=== PATIENT | female | born 1960 | race Caucasian/White ===

== ENCOUNTER 2017-10-01 21:26 | Emergency (ER) | payer MEDICARE, OTHER ==
[~2017-10-01] VITALS: Ht 172.7 cm; Wt 79.8 kg
[~2017-10-01 21:26] MED LIST: CALCA400CH PO; CALCA500CH PO; CITA20 PO; ERGO50000 PO; GABA300 PO; LISI20 PO; MAGCHL64ER PO; Mobic15 MG PO; Percocet 5-3251 EACH PO; TRAZ100 PO; VENL25 PO; VITAMIN B122500 MC1 PO
[2017-10-01] MEDS ORDERED: CEPH500 PO (23:39)
== END 2017-10-01 23:58 | disposition home or self-care (01) ==
LOC: ER 21:26
DX: L03.032 Cellulitis of left toe (principal); Z79.899 Other long term (current) drug therapy; F32.9 Major depressive disorder, single episode, unspecified; F17.200 Nicotine dependence, unspecified, uncomplicated
CPT/HCPCS: 99283

== ENCOUNTER → 2019-06-22 | Outpatient (CLI) | payer MEDICARE ==
[~2019-06-22] MED LIST changes: +CEPH500 PO
== END ==
LOC: LAB SHORT 19:33 → LAB 19:33
DX: N39.0 Urinary tract infection, site not specified (principal)
CPT/HCPCS: 87077; 87086; 87186

== ENCOUNTER 2019-10-21 10:12 | Emergency (ER) | payer MEDICARE ==
[~2019-10-21] VITALS: Ht 172.7 cm; Wt 74.8 kg
[2019-10-21] MEDS ORDERED: FAMO20 PO (10:46)
[2019-10-21] MEDS ORDERED: DEXA4 PO (10:46)
[2019-10-21] MEDS ORDERED: LEVE500 PO (10:46)
== END 2019-10-21 12:00 | disposition home or self-care (01) ==
LOC: ER 10:12
DX: H53.9 Unspecified visual disturbance (principal); I10 Essential (primary) hypertension; F32.9 Major depressive disorder, single episode, unspecified; G62.9 Polyneuropathy, unspecified; F17.210 Nicotine dependence, cigarettes, uncomplicated; Z79.899 Other long term (current) drug therapy; Z98.890 Other specified postprocedural states
CPT/HCPCS: 70450; 99284-25

== ENCOUNTER 2019-12-04 14:06 | Emergency (ER) | payer MEDICARE, OTHER ==
[~2019-12-04] VITALS: Ht 172.7 cm; Wt 79.4 kg
[~2019-12-04 14:06] MED LIST changes: +B-121000 MC3 PO; +DEXA4 PO; +FAMO20 PO; +LEVE500 PO; +VENL150ER PO; -VENL25 PO; -VITAMIN B122500 MC1 PO
[2019-12-04 14:32] LABS: Source, Urine Voided
[2019-12-04 14:35] LABS: Bilirubin, Urine Neg (Neg); Blood, Urine Neg (Neg); Glucose Qualitative, Urine Neg (Neg); Ketones, Urine Neg (Neg); Leukocyte Esterase, Urine Neg (Neg); Nitrite, Urine Neg (Neg); Protein, Urine Neg (Neg); Urobilinogen, Urine NORM (Normal)
[2019-12-04 14:48] LABS: Appearance, Urine Clear (Clear); Color, Urine Yellow (P-Yellow)
[2019-12-04 15:02] LABS: BASOPHILS ABSOLUTE AUTO 0.03 K/mm3 (0.00-0.23); BASOPHILS PERCENT AUTO 0 % (0-2); EOSINOPHILS ABSOLUTE AUTO 0.07 K/mm3 (0.00-0.68); EOSINOPHILS PERCENT AUTO 1 % (0-6); Hematocrit 38.7 % (33.0-51.0); Hemoglobin 12.8 g/dL (11.5-16.0); IMMATURE GRAN ABSOLUTE AUTO 0.25 K/mm3 (0.00-0.10); IMMATURE GRAN PERCENT AUTO 3 % (0-1); LYMPHOCYTES ABSOLUTE AUTO 1.92 K/mm3 (0.84-5.20); LYMPHOCYTES PERCENT AUTO 23 % (21-46); MONOCYTES ABSOLUTE AUTO 0.63 K/mm3 (0.16-1.47); MONOCYTES PERCENT AUTO 7 % (4-13); Mean Corpuscular HGB Conc 33.1 g/dL (31.5-36.5); Mean Corpuscular Volume 91 fL (80-100); Mean Platelet Volume 8.2 fL (9.1-12.4); NEUTROPHILS ABSOLUTE AUTO 5.56 K/mm3 (1.96-9.15); NEUTROPHILS PERCENT AUTO 66 % (41-73); Platelet Count 283 K/mm3 (150-400); RDW Coefficient Variation 15.4 % (11.7-14.2); RDW Standard Deviation 50.7 fL (35.1-46.3); Red Blood Cell Count 4.27 M/mm3 (3.80-5.20); White Blood Cell Count 8.46 K/mm3 (4.00-11.30)
[2019-12-04] MEDS ORDERED: XANAX0.25 MG PO (15:12)
[2019-12-04] MEDS ORDERED: PRINIVIL10 MG PO (15:12)
[2019-12-04] MEDS ORDERED: NEURONTIN600 MG PO (15:13)
[2019-12-04] MEDS ORDERED: ZOLP10 PO (15:14)
[2019-12-04] MEDS ORDERED: MOBIC15 MG PO (15:15)
[2019-12-04] MEDS ORDERED: DOCU100 PO (15:16)
[2019-12-04 15:26] LABS: Alanine Aminotransfer (ALT/SGP 32 U/L (12-78); Albumin, Blood 3.3 g/dL (3.4-5.0); Albumin/Globulin Ratio 1.1 (0.8-1.8); Alk Phos 61 U/L (50-136); Anion Gap 7 mmol/L (6-16); Aspartate Aminotrans (AST/SGOT 22 U/L (12-37); Bilirubin, Total 0.5 mg/dL (0.1-1.0); Blood Urea Nitrogen 24 mg/dL (8-24); Bun/Creatinine Ratio 41.4 (12.0-20.0); CO2, Blood 27 mmol/L (21-32); Calcium, Blood 8.5 mg/dL (8.5-10.1); Chloride, Blood 104 mmol/L (98-108); Creatinine, Blood 0.58 mg/dL (0.40-1.00); Globulin, Blood 3.1 g/dL (2.2-4.0); Glomerular Filtration Rate >60 (60-); Glucose, Blood 83 mg/dL (70-99); Potassium, Blood 4.1 mmol/L (3.5-5.5); Sodium, Blood 138 mmol/L (136-145); Total Protein, Blood 6.4 g/dL (6.4-8.2)
== END 2019-12-04 18:38 | disposition home or self-care (01) ==
LOC: ER 14:06
PROVIDERS: Emergency Medicine
DX: R42 Dizziness and giddiness (principal); F32.9 Major depressive disorder, single episode, unspecified; I10 Essential (primary) hypertension; G62.9 Polyneuropathy, unspecified; F17.210 Nicotine dependence, cigarettes, uncomplicated; Z79.899 Other long term (current) drug therapy
CPT/HCPCS: 36415; 80053; 81003; 85025; 93005; 93010; 96360; 96361; 99284-25; J7030

== ENCOUNTER 2020-04-19 15:40 | Observation (INO) | payer MEDICARE, OTHER ==
[~2020-04-19] VITALS: Ht 172.7 cm; Wt 76.2 kg
[~2020-04-19 15:40] MED LIST changes: -DEXA4 PO; +DOCU100 PO; -LEVE500 PO; -VENL150ER PO; +XANAX0.25 MG PO
[2020-04-19 16:47] LABS: BASOPHILS ABSOLUTE AUTO 0.01 K/mm3 (0.00-0.23); BASOPHILS PERCENT AUTO 0 % (0-2); EOSINOPHILS ABSOLUTE AUTO 0.01 K/mm3 (0.00-0.68); EOSINOPHILS PERCENT AUTO 0 % (0-6); Hematocrit 33.1 % (33.0-51.0); Hemoglobin 10.8 g/dL (11.5-16.0); IMMATURE GRAN ABSOLUTE AUTO 0.06 K/mm3 (0.00-0.10); IMMATURE GRAN PERCENT AUTO 1 % (0-1); LYMPHOCYTES ABSOLUTE AUTO 1.32 K/mm3 (0.84-5.20); LYMPHOCYTES PERCENT AUTO 18 % (21-46); MONOCYTES ABSOLUTE AUTO 0.61 K/mm3 (0.16-1.47); MONOCYTES PERCENT AUTO 9 % (4-13); Mean Corpuscular HGB 30.2 pg (26.0-34.0); Mean Corpuscular HGB Conc 32.6 g/dL (31.5-36.5); Mean Corpuscular Volume 93 fL (80-100); Mean Platelet Volume 8.7 fL (9.1-12.4); NEUTROPHILS ABSOLUTE AUTO 5.16 K/mm3 (1.96-9.15); NEUTROPHILS PERCENT AUTO 72 % (41-73); Platelet Count 285 K/mm3 (150-400); RDW Coefficient Variation 13.2 % (11.7-14.2); RDW Standard Deviation 44.7 fL (35.1-46.3); Red Blood Cell Count 3.58 M/mm3 (3.80-5.20); White Blood Cell Count 7.17 K/mm3 (4.00-11.30)
[2020-04-19 16:56] LABS: Alanine Aminotransfer (ALT/SGP 44 U/L (12-78); Alk Phos 128 U/L (50-136); Anion Gap 8 mmol/L (6-16); Aspartate Aminotrans (AST/SGOT 34 U/L (12-37); Bilirubin, Total 0.4 mg/dL (0.1-1.0); Blood Urea Nitrogen 33 mg/dL (8-24); Bun/Creatinine Ratio 43.3 (12.0-20.0); CO2, Blood 27 mmol/L (21-32); Chloride, Blood 111 mmol/L (98-108); Creatinine, Blood 0.76 mg/dL (0.40-1.00); Globulin, Blood 3.1 g/dL (2.2-4.0); Glomerular Filtration Rate >60 (60-); Glucose, Blood 109 mg/dL (70-99); Potassium, Blood 2.5 mmol/L (3.5-5.5); Sodium, Blood 146 mmol/L (136-145); Total Protein, Blood 6.1 g/dL (6.4-8.2)
[2020-04-19 17:24] LABS: Source, Urine Catheter
[2020-04-19 17:35] LABS: Blood, Urine 1+ (Neg); Glucose Qualitative, Urine Neg (Neg); Ketones, Urine 2+ (Neg); Leukocyte Esterase, Urine 1+ (Neg); Nitrite, Urine Neg (Neg); Protein, Urine 2+ (Neg); Specific Gravity, Urine 1.025 (1.003-1.022); Urobilinogen, Urine 1+ (Normal)
[2020-04-19] MEDS ORDERED: OXYC5 PO (17:38)
[2020-04-19] MEDS ORDERED: PRINIVIL10 MG PO (17:38)
[2020-04-19] MEDS ORDERED: NEURONTIN600 MG PO (17:38)
[2020-04-19] MEDS ORDERED: DEXA4 PO (17:39)
[2020-04-19] MEDS ORDERED: LEVE500 PO (17:39)
[2020-04-19] MEDS ORDERED: MOBIC15 MG PO (17:40)
[2020-04-19] MEDS ORDERED: Ativan1 MG PO (17:40)
[2020-04-19 17:41] LABS: Appearance, Urine Hazy (Clear); Bilirubin, Urine 1+ (Neg); Color, Urine Yellow (P-Yellow)
[2020-04-19] MEDS ORDERED: VENL150ER PO (17:41)
[2020-04-19] MEDS ORDERED: SULFAMETHOXAZO1 EAC1 PO (17:42)
[2020-04-19 17:43] LABS: Bacteria Rare /hpf; Hyaline Casts 0-2 /lpf (0-2); Mucus Heavy (0-Heavy); Red Blood Cells, Urine Not Seen /hpf (0-2); Squamous Epithelial Cells Many /hpf (Few)
[2020-04-19] MEDS ORDERED: ZOLP10 PO (18:46)
--- NOTE | 2020-04-20 04:25 | NUR ---
SHIFT SUMMARY PT NEW ED ADMIT THIS EVENING. PT HAS BASELINE CONFUSION PER MD NOTE BUT IT IS UNCLEAR HOW CLOSE TO BASELINE PT'S MENTATION IS AT THIS TIME. PT REMAINS CONFUSED. HOWEVER MORE CLEAR MINDED THAN WHEN FIRST ADMITTED THIS EVENING. PT A/O X 2-3. PT DID REPORT PAIN IN BLE'S. BILATERAL FEET A BLUE HUE. WOUNDS SCATTERED THROUGHOUT, MORE SEVERE ON LEGS THAN ANYWHERE ELSE ON PT'S BODY. PT STATED IT WAS FROM GARDENING AT HOME AND BELIEVES THAT SHE HAS ALSO BEEN FALLING AT HOME BUT WAS NOT ENTIRELY SURE. PICTURES TAKEN AND PLACED IN CHART. PT ALSO GIVEN TYLENOL WITH GOOD EFFECT. 40 MEQS IV POTASSIUM GIVEN THIS EVENING AFTER ADMISSION. IN ADDITION PT RECIEVED 20 MEQS IV AND 40 MEQS PO IN ED. SEIZURE PADS PLACED PER ORDERS. VITAL SIGNS STABLE. WILL CONTINUE TO MONITOR AND REPORT TO DAY RN.
[2020-04-20 05:07] LABS: BASOPHILS PERCENT AUTO 0 % (0-2); EOSINOPHILS PERCENT AUTO 0 % (0-6); Hematocrit 31.5 % (33.0-51.0); Hemoglobin 10.3 g/dL (11.5-16.0); IMMATURE GRAN ABSOLUTE AUTO 0.08 K/mm3 (0.00-0.10); IMMATURE GRAN PERCENT AUTO 1 % (0-1); LYMPHOCYTES ABSOLUTE AUTO 0.57 K/mm3 (0.84-5.20); LYMPHOCYTES PERCENT AUTO 9 % (21-46); MONOCYTES ABSOLUTE AUTO 0.19 K/mm3 (0.16-1.47); MONOCYTES PERCENT AUTO 3 % (4-13); Mean Corpuscular HGB 30.1 pg (26.0-34.0); Mean Corpuscular HGB Conc 32.7 g/dL (31.5-36.5); Mean Corpuscular Volume 92 fL (80-100); NEUTROPHILS ABSOLUTE AUTO 5.34 K/mm3 (1.96-9.15); NEUTROPHILS PERCENT AUTO 86 % (41-73); Platelet Count 271 K/mm3 (150-400); RDW Coefficient Variation 13.2 % (11.7-14.2); RDW Standard Deviation 44.4 fL (35.1-46.3); Red Blood Cell Count 3.42 M/mm3 (3.80-5.20); White Blood Cell Count 6.18 K/mm3 (4.00-11.30)
[2020-04-20 05:42] LABS: Anion Gap 5 mmol/L (6-16); Blood Urea Nitrogen 30 mg/dL (8-24); Bun/Creatinine Ratio 52.8 (12.0-20.0); CO2, Blood 27 mmol/L (21-32); Calcium, Blood 8.4 mg/dL (8.5-10.1); Chloride, Blood 112 mmol/L (98-108); Creatinine, Blood 0.57 mg/dL (0.40-1.00); Glomerular Filtration Rate >60 (60-); Glucose, Blood 216 mg/dL (70-99); Potassium, Blood 4.2 mmol/L (3.5-5.5); Sodium, Blood 144 mmol/L (136-145)
--- NOTE | 2020-04-20 13:56 | NUR ---
SHE HAS HAD A BUSY DAY SO FAR. HER MRI WAS COMPLETED ON THE 2ND ATTEMPT. SHE C/O TOO MUCH BACK PAIN THE FIRST TIME. SHE HAD NOT MENTIONED ANY BACK PAIN TO ME PRIOR TO THE TEST. ONE DOSE OF IV FENTANYL WAS EFFECTIVE LATER. SHE ALSO RECEIVED A PO ATIVAN THIS AM WHILE SHE WAS TEARFUL. SHE IS STRESSED ABOUT HER HEALTH AND ABOUT HER PERSONAL LIFE. SS REFERRAL WAS MADE LAST NIGHT AND APS CALLED TODAY. SHE MAY WANT TO GO TO A WOMEN[facility]S DETENTION WHEN SHE LEAVES HERE. HER DAUGHTER FERNANDO CALLED AND SPOKE WITH HER ON THE PHONE THIS AM. TINY SPOTS OF BLOODY DRAINAGE DOT THE BED FROM HER MULTIPLE VARIABLE LEG WOUNDS. SHE IS CONFUSED BUT KNOWS IT. IT DISTRESSES HER THAT IT IS SO HARD FOR HER TO THINK.
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
--- NOTE | 2020-04-21 04:24 | NUR ---
SHIFT SUMMARY PT IS A 59 Y/O FEMALE, ADMITTED FOR ACUTE METABOLIC ENCEPHALOPATHY. SHE IS A&O X SELF, SOMETIMES KNOWS SHE IS IN THE HOSPITAL, BUT DOES NOT KNOW THE TOWN OR DATE. PT IS AWARE OF HER CURRENT MENTAL LIMITATIONS, AND DOES GET FRUSTRATED WITH HERSELF AT TIMES. NO COMPLAINTS OF ACUTE PAIN, NAUSEA OR SOB. VITAL SIGNS STABLE. NO ACUTE CHANGES IN PT CONDITION NOTED. WILL CONTINUE TO MONITOR AND TREAT PER EMAR UNTIL HAND OFF TO DAY SHIFT RN.
[2020-04-21 05:08] LABS: BASOPHILS ABSOLUTE AUTO 0.01 K/mm3 (0.00-0.23); BASOPHILS PERCENT AUTO 0 % (0-2); EOSINOPHILS PERCENT AUTO 0 % (0-6); Hematocrit 35.3 % (33.0-51.0); Hemoglobin 11.5 g/dL (11.5-16.0); IMMATURE GRAN ABSOLUTE AUTO 0.18 K/mm3 (0.00-0.10); IMMATURE GRAN PERCENT AUTO 2 % (0-1); LYMPHOCYTES ABSOLUTE AUTO 0.72 K/mm3 (0.84-5.20); LYMPHOCYTES PERCENT AUTO 8 % (21-46); MONOCYTES ABSOLUTE AUTO 0.49 K/mm3 (0.16-1.47); MONOCYTES PERCENT AUTO 5 % (4-13); Mean Corpuscular HGB 29.5 pg (26.0-34.0); Mean Corpuscular HGB Conc 32.6 g/dL (31.5-36.5); Mean Corpuscular Volume 91 fL (80-100); Mean Platelet Volume 9.1 fL (9.1-12.4); NEUTROPHILS ABSOLUTE AUTO 7.78 K/mm3 (1.96-9.15); NEUTROPHILS PERCENT AUTO 85 % (41-73); Platelet Count 321 K/mm3 (150-400); RDW Coefficient Variation 12.8 % (11.7-14.2); RDW Standard Deviation 41.9 fL (35.1-46.3); White Blood Cell Count 9.18 K/mm3 (4.00-11.30)
[2020-04-21 05:37] LABS: Alanine Aminotransfer (ALT/SGP 35 U/L (12-78); Albumin, Blood 2.7 g/dL (3.4-5.0); Albumin/Globulin Ratio 0.9 (0.8-1.8); Alk Phos 123 U/L (50-136); Anion Gap 6 mmol/L (6-16); Aspartate Aminotrans (AST/SGOT 12 U/L (12-37); Bilirubin, Total 0.2 mg/dL (0.1-1.0); Blood Urea Nitrogen 18 mg/dL (8-24); CO2, Blood 27 mmol/L (21-32); Chloride, Blood 106 mmol/L (98-108); Creatinine, Blood 0.62 mg/dL (0.40-1.00); Globulin, Blood 3.1 g/dL (2.2-4.0); Glomerular Filtration Rate >60 (60-); Glucose, Blood 165 mg/dL (70-99); Potassium, Blood 3.7 mmol/L (3.5-5.5); Sodium, Blood 139 mmol/L (136-145); Total Protein, Blood 5.8 g/dL (6.4-8.2)
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
--- NOTE | 2020-04-21 17:45 | NUR ---
SHIFT SUMMARY PATIENTS DAUGHTERS INVOLVED IN CARE TODAY WITH PALLIATIVE CARE. PER MICHELLE PALLIATIVE CARE, HER GLEOBLASTOMA MAY BE BACK. PATIENT MADE COMFORT CARE AND TO DISCHARGE WITH HOSPICE WHEN SAFE ARANGEMENTS ARE MADE. SHE HAS BEEN VERY ANXIOUS AND TEARFUL TODAY. ATIVAN GIVEN X1 WHICH HELPED SIGNIFICANTLY.
--- NOTE | 2020-04-22 06:41 | NUR ---
SHIFT SUMMARY PT IS A 59 Y/O FEMALE, ADMITTED FOR TOXIC METABOLIC ENCEPHALOPATHY, CURRENTLY ON COMFORT CARE. PT IS A&O X 1-2, A 1PA TO THE BATHROOM. NO COMPLAINTS OF PAIN, NAUSEA OR SOB. PT SLEPT WELL THROUGH THE NIGHT. NO ACUTE CHANGES IN PT CONDITION NOTED. WILL CONTINUE TO MONITOR AND TREAT PER EMAR UNTIL HAND OFF TO DAY SHIFT RN.
--- NOTE | 2020-04-22 10:45 | NUR ---
Rosalba is currently on comfort care. Chart reviewed. She is currently sleeping and there is no family in the room at this time. Will allow her to rest and attempt to visit when she is awake.
--- NOTE | 2020-04-22 17:48 | NUR ---
PT STARTED SHIFT WITH EXTREME ANXIETY VERY TEARFUL AND WAS CRYING STATING SHE JUST WANTED TO LEAVE. TREATED FOR ANXIETY PER EMAR. THIS SEEMED TO HELP, BUT SHE STILL WAS TEARFUL TREATED AGAIN FOR ANXIETY PER EMAR AND THIS SEEMED TO BE EFFECTIVE. THIS DATA SECURITY ADMINISTRATOR VERBALLY SPOKE WITH PT TRYING TO CALM HER, BUT SHE JUST SEEMS TO GET WORKED UP.PT SET BED ALARM OFF AND AID WAS TRYING TO HELP INTO RESTROOM AND PT WOULD NOT LET HER STEADY HER AT BEGINNING OF SHIFT. PT IS TAKING A NAP AT THIS TIME. BED ALARM IS ON PT IS A BIT UNSTABLE WHEN WALKING AND HAS SOME CONFUSION. WILL CONTINUE TO MONITOR. DENIED ANY PAIN CALL LIGHT WITHIN REACH.
--- NOTE | 2020-04-22 20:23 | NUR ---
04/22/201929 SLEEPING WITHOUT DISTRESS. BED ALRM ON.
--- NOTE | 2020-04-22 22:30 | NUR ---
04/22/20 2215 AWAKE AND WATCHING TV. DENIES PAIN, SOB BUT DOES C/O ANXIETY. MEDICATED PER NOV. REQUESTED JELLO AND TOOK APPLESAUCE WITH MEDS. DECLINED SEQ. STOCKINGS FOR NOW. WAS UP EARLIER TO VOID WITH COUNTER HELPER ASSIST.
--- NOTE | 2020-04-23 04:16 | NUR ---
04/23/20 0400 PT SLEEPING WELL WITHOUT DISTRESS.
--- NOTE | 2020-04-23 07:15 | NUR ---
04/23/20 0630 SLIGHTLY ANXIOUS THIS AM AND MEDICATED PER NOV. DENIES ANY DISCOMFORT OR RESP. DIFFICULTIES. STILL IMPULSIVE WHEN GETTING UP TO VOID. BED ALARM WARNS STAFF AND SHE IS ASSISTED TO BATHROOM.
--- NOTE | 2020-04-23 17:51 | NUR ---
PT AOX3 WITH CONFUSION. PT STARTED SHIFT WITH LESS ANXIETY, BUT THE MORNING PROGRESSED SHE WAS HAVING MORE CRYING. 1 MG OF ATIVAN DID NOT SEEM TO HELP MUCH TODAY PT WAS SOBBING LOUDLY IN HER ROOM. PALLIATIVE CARE WAS NOTIFIED. AID WAS ABLE TO REDIRECT PT OFFERING SOME FOOD AND THIS SEEMED TO QUIET PT. PT HOWEVER KEPT COMPLAINING ABOUT STAYING AT THE HOSPITAL. THROUGH TALKING AND OFFERING EXTRA SNACKS AND INCREASING THE ATIVAN PER EMAR, PT SEEMS TO BE DOING MUCH BETTER THIS AFTERNOON. BED ALARM IS IN PLACE AND CALL LIGHT WITHIN REACH WILL CONTINUE TO MONITOR.
--- NOTE | 2020-04-23 19:59 | NUR ---
04/23/201944 HYDRODYNAMICIST FOUND PT IN BATHROON ON TOILET AND BLEEDING ON SHEETS/GOWN. IV'S BOTH OUT. PT DOES NOT REMEMBER PULLING THEM OUT. PT HAD LARGWE BM IN TOILET WITH VOID. CLEANSED AND RETURNED TO BED. BED ALARM ON. CALL GAONA WITHIN REACH AND REMINDED HOW TO CALL FOR HELP UP. PT STATED "OKAY."
--- NOTE | 2020-04-23 23:35 | NUR ---
JUICE AND PUDDING GIVEN SNACK.04/23/20 2330 PT SITTING UP. WHEN ASKED ABOUT NEED TO USE BATHROOM, SHE SAID "YES." BED ALARM TURNED OFF. RN ASSISTED HER TO BR. SLIGHTLY ANXIETY NOTED ABOUT BEING IN HOSPITAL. SEE MAR FOR MEDS GIVEN. BED ALARM TURNED ON AGAIN.
--- NOTE | 2020-04-24 17:13 | NUR ---
Initial spiritual care note: Rosalba appears slow to respond and confused. She was often tearful and when asked why, she said, "I want to go camping." She was unable to hold meaningful conversation. Non-pentecostalism. I helped her eat 2 puddings and she drifted off to sleep. I will remain available.
--- NOTE | 2020-04-24 17:17 | NUR ---
PT HAS BEEN AOX3 WITH A LOT OF ANXIETY AND DISTRESS TODAY. PT TREATED FOR ANXIETY PER EMAR. PT CAME OUT OF ROOM ONCE ON HER OWN AND HAD BE REDIRECTED BACK. PT IS NOT REALLY STABEL ON HER OWN AND A WALKER IS NEEDED. PT REPEATEDLY WAS CRYING AND SOBBING VERY LOUDLY SHE DOES NOT WANT TO BE SITTING IN ROOM AND WAITING. PT DOES NOT HAVE A SAFE PLACE TO STAY AND GET CONFUSED WHEN SOMEONE IS ASKING HER TO MAKE DECISION ABOUT WHERE SHE IS TO STAY AND WHAT SHE WANT. [facility] CONSULT HAS BEEN PLACE. DAUGHTER NOMI STATED ON PHONE SHE WOULD BE HERE TOMORROW. PLAN IS TO WORK TOWARDS A BETTER DISCHARGE PLAN TOMORROW WITH DAUGHTER'S [employer]. SHE IS ALSO GOING TO WORK ON GETTING POWERE OF BELT BRANDER TAKEN CARE OF WHEN SHE COMES. PT HAS BEEN INCONTENT IN BED, PT IS SLEEPING AT THIS TIME AND WILL BE MOVED TO ROOM 349 SHE HAS BEEN GETTING VERY LOUD AND IS DISTUBING PT'S AND THEIR FAMILIES NEXT DOOR.
--- NOTE | 2020-04-24 18:00 | NUR ---
PT TRANSFER PT TRANSFERRED FROM ROOM 361 TO 349 AT 1755. PT POSITIONED FOWLERS FOR DINNER. CALL LIGHT IN REACH AND RESTING CONFORTABLY.
--- NOTE | 2020-04-24 18:07 | NUR ---
GAVE REPORT TO RECIEVING RN FOR ROOM 349 SOON PT WAS MOVED. ALL BELONGINGS WERE TRANSFERED TO NEW ROOM.
--- NOTE | 2020-04-25 07:05 | NUR ---
SHIFT SUMMARY COMFORT CARE. DENIES PAIN, NAUSEA, DYSPNEA. WAS TEARFUL & REPORTED FEELING ANXIOUS LAST NIGHT AROUND 1914, MEDICATED W/ATIVAN PER ORDERS & PT DENIED FURTHER ANXIETY THIS AM. SLEPT SOUNDLY T/O NIGHT. REPOSITIONED & CHANGED PRN. PT UP IN ROOM 1 ASSIST, HAS VERY WOBBLY/UNSTEADY GAIT. BED ALARM ON FOR SAFETY FOR PT IS FORGETFUL/IMPULSIVE @TIMES & WILL GET UP W/O USING CALL LIGHT.
--- NOTE | 2020-04-25 14:10 | NUR ---
Met pt. with her nurse along the corridor, pt is confused and wants to go home offered prayers.
--- NOTE | 2020-04-25 17:03 | NUR ---
Pt resting in bed with her eyes closed upon arrival. Pt appears comfortable with no S/S of distress at this time. Spoke with Bedside RN Rylee and discussed case. Rylee reports Pt experienced significant agitation. Haloperidol offered and is managing symptoms at this time. No other concerns reported at this time. Palliative Care will remain available.
--- NOTE | 2020-04-25 17:32 | NUR ---
SUMMARY PT RESTING IN BED, HAS BEEN VERY AGITATED MOST OF THE DAY, CONFUSED, UNABLE TO STATE WHERE SHE IS OR WHAT THE DATE IS, CONVERSATION IS MOSTLY CONFUSED AND SOMETIMES WORD SALAD, PT HAS BEEN IN THE SHOWER WITH ASSIST, PT VERY UNSTEADY, DOES NOT USE THE CALL LIGHT, BED ALARM ON FOR SAFETY, MED PER EMAR FOR AGITATION, VSS, WILL CONT TO MONITOR
--- NOTE | 2020-04-25 18:34 | NUR ---
Spiritual care note: Rosalba was sleeping soundly and snoring loudly. She did not awaken to presence. I did not wish to disturb her while she was peaceful.
--- NOTE | 2020-04-26 09:05 | NUR ---
PT QUITE AGITATED AND ANXIOUS TO GET OUT OF HOSPITAL."I'LL JUST START WALKING." SPOKE TO TERRITORY SALES REPRESENTATIVE Gema JOHNSON; SHE IS TRYING TO ARRANGE 24 HOUR CG ASSISTANCE, SO PT CAN GO BACK TO ASSISTED, IS HOPING FOR D/C TODAY.
--- NOTE | 2020-04-26 13:06 | NUR ---
Met pt sitting in a chair resting offered prayers
--- NOTE | 2020-04-26 13:14 | NUR ---
Pt resting in chair with her eyes closed upon arrival. Pt remains with her eyes closed and does not respond to gentle touch and verbal stimuli. Mild snoring noted. Pt appears comfortable with no S/S of distress at this time. Spoke with Bedside RN Rosalind and discussed case. Rosalind reports Pt received haloperidol for comfort and agitation. Pt has been experiencing significant agitation and is wanting D/C from the hospital. Symptoms are currently managed. New order placed for Seroquel at bedtime noted. Spoke with Discharge Planer Dorothy and discussed case. Dorothy reports D/C plan is still unknown. Discussed options and potential avenues to pursue. Palliative Care will remain available for symptom management and therapeutic visits. Will monitor effectiveness of new regime. Pt may benefit from reduced frequency of dexamethasone to help reduce side effects for comfort if appropriate.
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
--- NOTE | 2020-04-26 18:24 | NUR ---
PATIENT BECAME AGITATED, WANTED TO GET UP AND WALK OUT. EDUCATED PT THAT SHE CURRENTLY HAD NO PLACE TO GO, AND THAT CARE MANAGEMENT IS WORKING ON FINDING HER A SAFE PLACE. SHE STATED "YOU LYING BCH!" AND ATTEMPTED TO STRIKE ME. AIDED PT FABY. Sang ULLOA CNA CALLED SECURITY AND THEY ARRIVED A FEW MINUTES LATER. ANOTHER RN REMOVED HALDOL FROM PYXIS. PATIENT'S DEMEANOR CALMED SHORTLY AFTER SECURITY ARRIVED. HALDOL NOT GIVEN. PT ATE DINNER AND WENT TO BED.
--- NOTE | 2020-04-26 19:05 | NUR ---
Spiritual care note: Rosalba is slow to respond and appears quite sleepy. All she said to me was "I want to go home" Then fell back to sleep. She appears comfortable. I will remain available.
--- NOTE | 2020-04-27 03:47 | NUR ---
SUMMARY NO ISSUES NOTED. PT HAS BEEN SLEEPING HEAVILY T/O SHIFT. PT DID TAKE PM MEDS W/ OUT ISSUE. PT CURRENTLY SLEEPING AND IN NO DISTRESS. CALL LIGHT IN REACH AND BED ALARM ON.
--- NOTE | 2020-04-27 08:30 | NUR ---
CC ASSESSMENT: PT IN NO APPARENT DISTRESS. NO DYSPNEA/SOB/SECRETIONS. NO FAMILY PRESENT. WCTM.
--- NOTE | 2020-04-27 10:52 | NUR ---
CC ASSESSMENT: PT IN NO APPARENT DISTRESS / NO C/O PAIN. IRRITABLE, UNCOOPERATIVE WITH CARE. NO DYSPNEA/SOB/SECRETIONS. NO FAMILY PRESENT. WCTM.
--- NOTE | 2020-04-27 15:10 | NUR ---
Pt resting in bed upon arrival. Pt appears anxious and agitated. Offered therapeutic listening as Pt expresses wishes to D/C. Pt tossing and turning in bed. Pt is agreeable with taking Ativan to help with anxiety. Bedside RN Pratima offers Ativan. Continued supportive visit and explored distraction techniques. Pt reports enjoyment with coloring. Provided coloring pages and coloring markers. Spoke with Bedside ISABEL Rodriguez and discussed case. Conferenced with hospital pharmacist Monserrat regarding taporing dexamethasone. Monserrat recommends reducing dexamethasone to BID. Spoke with Dr Witt and discussed case. Suggested reducing dexamethasone frequency to help reduce potential side effects and for comfort. Relayed pharmacist recommendations. Pt may also benefit from scheduled seroquel in the AM as well for comfort. Palliative Care will remain available for symptom management and therapeutic visits.
--- NOTE | 2020-04-27 16:46 | NUR ---
CC ASSESSMENT: NO C/O PAIN. NO DYSPNEA/SOB/SECRETIONS. NO FAMILY PRESENT. WCTM.
--- NOTE | 2020-04-27 16:50 | NUR ---
CC ASSESSMENT: NO C/O PAIN. MEDICATED FOR ANXIETY/AGITATION PER EMAR. NO DYSPNEA/SOB/SECRETIONS. NO FAMILY PRESENT. WCTM.
--- NOTE | 2020-04-27 17:06 | NUR ---
CC ASSESSMENT: NO C/O PAIN. NO DYSPNEA/SOB/SECRETIONS. WCTM.
--- NOTE | 2020-04-27 18:37 | NUR ---
CC ASSESSMENT: NO C/O PAIN. NO DYSPNEA/SOB/SECRETIONS. NO FAMILY PRESENT. WCTM.
--- NOTE | 2020-04-27 18:38 | NUR ---
SHIFT SUMMARY: NO ACUTE CHANGES TO REPORT THIS SHIFT. PT A&O X2-3. PT IRRITABLE; OCC UNCOOPERATIVE WITH CARE. COMFORT CARE MEASURES CONTINUING. DISCHARGE PLANNING FOLLOWING. WCTM.
--- NOTE | 2020-04-28 04:10 | NUR ---
SUMMARY PT HAS BEEN SLEEPING T/O SHIFT PT UP TO VOID ONLY. PT TOOK PM MEDS W/ OUT ISSUE. PT CURRENTLY SLEEPING AND BREATHING EASY. CALL LIGHT IN REACH AND BED ALARM ON.
--- NOTE | 2020-04-28 07:59 | NUR ---
CC ASSESSMENT: PT IN NO APPARENT DISTRESS; PT IS ASLEEP. NO DYSPNEA/SOB/SECRETIONS. NO FAMILY PRESENT. WCTM.
--- NOTE | 2020-04-28 09:52 | NUR ---
CC ASSESSMENT: PT IN NO APPARENT DISTRESS; PT CURRENTLY ASLEEP. NO DYSPNEA/SOB/SECRETIONS. NO FAMILY PRESENT. WCTM.
--- NOTE | 2020-04-28 12:03 | NUR ---
CC ASSESSMENT: NO C/O PAIN; PT IN NO APPARENT DISTRESS. NO DYSPNEA/SOB/SECRETIONS. NO FAMILY PRESENT. WCTM.
--- NOTE | 2020-04-28 13:08 | NUR ---
Comfort Care Visit Pt reports having moderate anxiety and 7/10 pain in her chest. Pt is requesting medications for comfort. Pt reports no other concerns at this time. Spoke with Bedside RN Michael and discussed case. Relayed Pt's pain, anxiety and reviewed comfort medications. Palliative Care will remain available for symptom management and supportive visits.
--- NOTE | 2020-04-28 13:36 | NUR ---
CC ASSESSMENT: MEDICATED FOR PAIN PER EMAR. NO DYSPNEA/SOB/SECRETIONS. NO FAMILY PRESENT. WCTM.
--- NOTE | 2020-04-28 14:46 | NUR ---
CC ASSESSMENT: MEDICATED FOR PAIN & ANXIETY PER EMAR. NO DYSPNEA/SOB/SECRETIONS. NO FAMILY MEMBERS PRESENT. WCTM.
--- NOTE | 2020-04-28 17:17 | NUR ---
CC ASSESSMENT: PT IN NO APPARENT DISTRESS; SLEEPING AT THIS TIME. NO DYSPNEA/SOB/SECRETIONS. NO FAMILY PRESENT. WCTM.
--- NOTE | 2020-04-28 18:33 | NUR ---
CC ASSESSMENT: NO C/O PAIN. NO DYSPNEA/SOB/SECRETIONS. PT RESTING PEACEFULLY AFTER DINNER. NO FAMILY PRESENT. WCTM.
--- NOTE | 2020-04-28 19:30 | NUR ---
SHIFT SUMMARY: NO ACUTE CHANGES TO REPORT THIS SHIFT. PT HX DEPRESSION; A&O X2-3; LABILE; COOPERATIVE WITH CARE. MEDICATED FOR PAIN & ANXIETY PER EMAR. COMFORT CARE MEASURES REMAIN IN EFFECT. REPORT GIVEN TO ONCOMING RN.
--- NOTE | 2020-04-29 07:44 | NUR ---
REVENUE STAMP CUTTER SUMMARY Patient slept well overnight. Rosalba did require medidication only once for back pain at HS. A&OX2, pleasant and cooperative. up to commode to urinate with standby assistance from staff. calls intermittantly for help, but sometimes forgets. Alarm set on bed.
--- NOTE | 2020-04-29 08:00 | NUR ---
PT PLEASANT COOP, STATES IS NOT IN PAIN. ACCEPTED AM PILLS. RESTING COMFORTABLY. IS ON COMFORT CARE. NO NEW CONCERNS AT THIS TIME. BED IN LOW POSITION, CALL LITE IN REACH, CALLS APPROP
--- NOTE | 2020-04-29 15:30 | NUR ---
PAL CARE COMFORT CARE VISIT. STOOD IN PT'S ROOM TO OBSERVE. SHE IS ON RIGHT SIDE FACING DOOR AND SLEEPING PEACEFULLY AT THIS TIME. RESP EVEN AND UNLABORED. BIOTECHNOLOGIST STATES PT HAS HAD A QUIET DAY. I DID NOT WAKE OR DISTURB PT AT THIS TIME. PAL CARE TO CONT TO FOLLOW.
--- NOTE | 2020-04-29 17:24 | NUR ---
PT HAS BEEN PLEASANT AND COOP TODAY. QUIET , SOME TALKATIVE. SOME PAIN THIS AFT. MED PER EMAR. WAS HOT AND CLOSED DRAPES FROM SUN POURING ON HER, LOOSED BLANKETS. PLACED FAN FOR HER COMFORT. PT STATED WAS HELPFUL. NO NEW CONCERNS AT THIS TIME. BED IN LOW POSITOIN, CALL LITE IN REACH, CALLS APPROP
--- NOTE | 2020-04-30 08:00 | NUR ---
PT PLEASANT QUIET TALKATIVE. DENIES PAIN. AGAIN OFFERED PAIN MEDS. STATES NOT NEEDED. IS LESS STEADY ON FEET TODAY. IS COMFORT CARE. NO NEW CONCERNS AT THISTIME. BED IN LOW POSITION, CALL LITE IN REACH. BED ALARM ON FOR SAFETY
--- NOTE | 2020-04-30 15:02 | NUR ---
DAUGHTER FROM [place] IN TO VISIT. PT PLEASED TO SEE HER. WHEN OTHER DAUGHTER CALLED, SOME ANXIETY NOTED. CRYING. ATIVAN OFFERED AND TAKEN. PT RESUMING CALMNESS AGAIN. NO NEW CONCERNS AT THIS TIME.
--- NOTE | 2020-04-30 18:10 | NUR ---
PT PLEASANT AND COOP TODAY. DAUGHTER WAS IN TODAY. SHE WAS HAPPY TO VISIT WITH HER. DAUGHTER STATES SHE HAS DECLINED SIGNIFICANTLY. NO NEW CONCERNS TODAY. BED IN LOW POSITION, CALL LITE IN REACH, CALLS APPROP. BED ALARM ON FOR SAFETY FOR FALLS.
--- NOTE | 2020-05-01 06:23 | NUR ---
CARPENTER APPRENTICE SUMMARY Rosalba started shift quite anxious and pleasantly confused. Still complaining of being extremely hot. Temp WNL, Patient extremely diaphoretic. Made large icepack and gave patient 20mg Roxynal both with good result. Later, patient became very anxious and started getting agitated. 5mg haldol and repeat Roxynol did the trick and Rosalba was able to sleep for the duration of the rest of the night.
--- NOTE | 2020-05-01 10:33 | NUR ---
PATIENT WAS COMPLAINING OF FEELING LIKE SHE WAS "BURNING HOT" SO SHE WAS GIVEN A COOL WASHCLOTH TO PLACE ON HER FOREHEAD WHICH WAS EFFECTIVE.
--- NOTE | 2020-05-01 11:15 | NUR ---
Met pt. lying in bed resting and is doing much better offered prayers and blessed pt.
--- NOTE | 2020-05-01 16:39 | NUR ---
PATIENT HAS BEEN PLEASANT AND COOPERATIVE. SLEPT THE MAJORITY OF THE SHIFT. DENIES PAIN AND DISCOMFORT. NO ACUTE CHANGES TO REPORT OF AT THIS TIME.
--- NOTE | 2020-05-01 20:33 | NUR ---
PT STATUS PT IS ABLE TO MAKE HER NEEDS KNOWN. SHE REQUESTED A WARM BLANKET. SHE DENIED PAIN. SHE SWALLOWED HER MEDICATIONS EASILY
--- NOTE | 2020-05-02 04:18 | NUR ---
SHIFT SUMMARY ADMITTED FOR TOXIC METABOLIC ENCEPHALOPATHY. COMFORT CARE/DNR CODE. HAS GLIOBLASTOMA, POST RADIATION AND CHEMO TX'S. ON CARDIAC DIET, 1 ASSIST TO BSC, SHE IS CONTINENT. SHE WILL NEED HELP WITH A PLACE TO GO ON DISCHARGE, THERE ARE SOCIAL ISSUES AT HER HOME.
--- NOTE | 2020-05-02 07:47 | NUR ---
patient had a post void residual of 50cc, after almost 24 hours of no void.
--- NOTE | 2020-05-02 11:26 | NUR ---
Pt. is improved offered prayers
--- NOTE | 2020-05-02 16:44 | NUR ---
PATIENT IS SUCH A SWEET HEART AND IS VERY PATIENT AND COOPERATIVE WITH STAFF. SHE WAS ASSISTED WITH A SHOWER TODAY. SHE HAD SOME SEVERE PAIN WHICH HER [place] WAS VERY EFFECTIVE TOWARDS. SHE HAS EATEN PORTION OF HER MEALS AND TAKEN ALL OF HER SCHEDULED MEDICATIONS WITHOUT PROBLEM. WILL CONTINUE TO MONITOR AND PROVIDE CARE NEEDED.
--- NOTE | 2020-05-02 18:36 | NUR ---
Spiritual care note: Rosalba was pleasant and smiled easily today. She did not appear to know where she was or why. But, this did not seem to bother her. She happily ate her pudding cup with a york packet while we spoke. She is clearly confused, but happy today. She denied concern/pain. I provided companionship and assrance of love/care. I will remain available.
--- NOTE | 2020-05-02 19:45 | NUR ---
COMFORT CARE ASSESSMENT PT SITTING UP IN BED, CRYING OUT IN PAIN. MEDICATED PER EMAR. OTHERWISE APPEARS COMFORTABLE. RESPS EVEN AND UNLABORED. DENIES OTHER NEEDS AT THIS TIME. CALL LIGHT, POSSESSIONS IN REACH, WILL CONTINUE TO MONITOR AND ASSESS PT LEVEL OF COMFORT.
--- NOTE | 2020-05-02 21:45 | NUR ---
RN IN ROOM ROUNDING ON PT, PT VISIBLY UPSET, STATING THAT, "STAFF AREN'T LISTENING TO ME, AND HAVE NO IDEA WHAT THEY ARE DOING." ENCOURAGED PT TO EXPRESS CONCERNS AND FEELINGS. OFFERED PT A SNACK, RE-DIRECTABLE. DENIES ANY OTHER NEEDS AT THIS TIME. CALL LIGHT, POSSESSIONS IN REACH. WILL CONTINUE TO MONITOR AND ENCOURAGE PT TO EXPRESS FEELINGS NEEDED.
--- NOTE | 2020-05-03 03:55 | NUR ---
SHIFT SUMMARY PT HAS HAD AN UNEVENTFUL NIGHT. SAT ON EDGE OF BED OFF AND ON T/O THE NIGHT. PT FORGETFUL, FOUND TO BE HOBBLING NEXT TO BED ONCE DURING THE NIGHT. RE-DIRECTED BACK TO BED, CALM AND COOPERATIVE WITH CARES. PT TOLERATES TRANSFERS TO BS WELL. ASLEEP AT THIS TIME, APPEARS COMFORTABLE. DENIES NEEDS AT THIS TIME, CALL LIGHT, POSSESSIONS IN REACH, BED IN LOWEST POSITION WITH ALARMS ON. WILL CONTINUE TO MONITOR AND PROVIDE CARE NEEDED UNTIL DAY RN ASSUMES CARE.
--- NOTE | 2020-05-03 07:40 | NUR ---
PATIENT IS AWAKE, SITTING IN BED AND COLORING. NO COMPLAINTS THIS MORNING.
--- NOTE | 2020-05-03 09:33 | NUR ---
PATIENT JUST FINISHED A SHOWER WITH THE ASSOCIATE CURATOR'S ASSISTANCE. SHE ATE HER BREAKFAST THIS MORNING.
--- NOTE | 2020-05-03 11:29 | NUR ---
PATIENT IS SLEEPING AT THIS TIME. WAS MEDICATED FOR PAIN PER EMAR EARLIER. SHE COMPLAINED OF BACK PAIN. WILL CONTINUE TO MONITOR
--- NOTE | 2020-05-03 13:33 | NUR ---
Pt. is lying in bed resting looks to be much better prayed for pt.
--- NOTE | 2020-05-03 15:45 | NUR ---
THE PATIENT'S DAUGHTER AND DOG ARE AT THE BEDSIDE AT THIS TIME.
--- NOTE | 2020-05-03 17:30 | NUR ---
THE PATIENT'S DAUGHTER IS STILL AT THE BEDSIDE.
--- NOTE | 2020-05-03 17:31 | NUR ---
PATIENT IS ALERT. SHE IS ORIENTED TO SELF, FAMILY AND FOLLOWING DIRECTIONS. THE PATIENT'S DAUGHTER IS AT THE BEDSIDE. PATIENT IS A 1PA WITH FWW AND GAITBELT TO THE BATHROOM. PATIENT HAS BEEN CONFUSED PERIODICALLY THROUGHTOUT THE DAY. SHE COMPLAINED OF "SCIATIC" PAIN THIS MORNING. SHE COMPLEAINED OF ANXIETY THIS AFTERNOON. WILL CONTINUE TO MONITOR
--- NOTE | 2020-05-03 18:51 | NUR ---
Spiritual care note: Rosalba was confused and sobbing when I entered room. I was able to redirect her through conversation about her life. 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 She loves her two dtrs and her grandkids. By the time I left her, she was smiling and drifting off to sleep in her recliner. I will remain available.
--- NOTE | 2020-05-04 04:39 | NUR ---
WASTE AND BATTING WASTE CHOPPER SUMMARY Patient slept well after receiving hs meds. Difficulty finding words and some difficulty with comprehension. Was able to get oob with this RN to use bedside commode with easy one assist. Small to medium bowel movement before bedtime.
--- NOTE | 2020-05-04 10:43 | NUR ---
0800 NOTE SHE IS AWAKE. ASSESSED[place] [facility] [place]ITB[place] WALKER AND 2 ASSIST. SHE VOIDED AND HAD SMEARS OF STOOL AT HER RECTUM. BOTTOM IS RED BUT NOT BROKEN. INTO THE CHAIR NEXT WITH 1 ASSIST FOR BREAKFAST. DENIES PAIN. SHE HAS MILD CONFUSION.
--- NOTE | 2020-05-04 11:00 | NUR ---
1000 NOTE SHE ATE BREAKFAST, SOME OF IT WITH HER FINGERS INAPPROPRIATELY. SHE IS COMFORTABLE. SHE IS STILL SITTING IN THE CHAIR.
--- NOTE | 2020-05-04 12:36 | NUR ---
1200 NOTE NO CHANGES. SITTING IN THE RECLINER WITH HER LEGS UP.
--- NOTE | 2020-05-04 14:25 | NUR ---
1400 NOTE SHE IS BACK IN BED FROM THE CHAIR AFTER USING THE BSC TO VOID. SHE SET OFF HER ALARM INSTEAD OF USING THE CALL LIGHT. SO BED ALARM ON USUAL.
--- NOTE | 2020-05-04 16:49 | NUR ---
1600 NOTE SHE C/O PAIN RECENTLY AND WAS ANGRY LIKE IT HAD BEEN GOING ON FOR AWHILE AND I SHOULD HAVE KNOWN IT. ROXANOL AND ATIVAN GIVEN. SHE FEELS BETTER. WILL GET UP AGAIN FOR DINNER.
--- NOTE | 2020-05-04 17:18 | NUR ---
Spiritual care note: Rosalba was happy and talkative, although she did have trouble finding words at times. She spoke with pride about her dtrs and grandkids. She denies pain/concerns and appears to enjoy conversation and companionship. We have an easy rapport. I kept the conversation light. Facilitated happy reminiscing. hydro plant technician services will remain available.
--- NOTE | 2020-05-04 18:09 | NUR ---
SHE IS ASLEEP NOW RIGHT AFTER EATING A GOOD DINNER. HER APPETITE IS GOOD. SHE C/O PAIN ONCE TODAY AND ROXANOL WAS GIVEN ALONG WITH ATIVAN. NO SEIZURES. UP TO THE CHAIR TWICE. VOIDS WELL ON THE BSC WITH EITHER 1 OR 2 ASSIST. SHE NEEDS A GAITBELT ON FOR US TO HELP HER GET TO A STAND. SHE IS WEAK BUT TAKES STEPS WELL WHEN MANEUVERING FROM BED TO CHAIR TO BSC.
--- NOTE | 2020-05-05 07:52 | NUR ---
SHE IS AWAKE AND CONFUSED. SHE IS SITTING UP IN HER BED WITH HER PENS/COLORED MARKERS BUT NOT COLORING ANY PICTURE. SHE HAS AN APPETITE FOR BREAKFAST. BED ALARM ON. SHE DENIES ANY PAIN.
--- NOTE | 2020-05-05 09:55 | NUR ---
SHE JUST BRUSHED HER TEETH AND TOOK AN ATIVAN TO FEEL BETTER. SHE IS RESTLESS. SHE DENIED NEED FOR PAIN MEDICINE. SHE IS IN THE RECLINER CHAIR. WHILE TYPING THIS IN HER ROOM SHE STARTED SHAKING HER R HAND AND ARM. WHEN ASKED IF HER ARM HURTS SHE SAID YES. I THEN GOT THE ROXANOL TO GIVE HER. PALLIATIVE CARE NURSE ALSO JUST STOPPED IN TO SEE HER.
--- NOTE | 2020-05-05 12:45 | NUR ---
SHE WAS MEDICATED EARLIER FOR ANXIETY AND PAIN. SHE HAS BEEN SLEEPING COMFORTABLY IN THE RECLINER. WE WILL OFFER HER HER LUNCH WHEN SHE WAKES UP. SHE HAS HAD A GOOD APPETITE.
--- NOTE | 2020-05-05 15:35 | NUR ---
BACK TO BED WITH ASSIST. SHE REMAINED SLEEPY THROUGHOUT THE TRANSFER AND REPOSITIONING. NO LUNCH TODAY. I WARMED IT UP ONCE BUT SHE WENT BACK TO SLEEP. RESPIRATIONS REGULAR.
--- NOTE | 2020-05-05 16:15 | NUR ---
SHE IS SLEEPING IN BED. SHE AWOKE BRIEFLY FOR SWALLOWING ROUTINE MEDS. WHILE AWAKE SHE DRAGGED MISC PERSONAL ITEMS INTO HER LAP.
--- NOTE | 2020-05-05 16:36 | NUR ---
pt seen a few times today for theraputic visits. Gave her some candy treats and some new art work and spent time in conversation. will get her aneck pillow.
--- NOTE | 2020-05-05 17:59 | NUR ---
Patient did not eat dinner this shift due to not being awake enough at this time. RN notified.
--- NOTE | 2020-05-05 18:12 | NUR ---
NO CHANGES. SHE HAS BEEN SLEEPY BUT AROUSABLE SINCE SHE RECEIVED ATIVAN AND ROXANOL THIS AM. SHE HAS HAD 2 SHORT EPISODES OF BEING AWAKE. SHE RECEIVED A PHONE CALL BUT COULDN'T REALLY ENGAGE. WILL CONTINUE COMFORT CARE.
--- NOTE | 2020-05-06 07:43 | NUR ---
SHIFT SUMMARY PATIENT CONTINUES TO BE PLEASANTLY CONFUSED. WAS ABLE TO SLEEP COMFORTABLY MOST OF THE NIGHT. DID NOT REQUIRE ANY PRN MEDICATIONS. BED IN LOWEST POSITION WITH WHEELS LOCKED AND ALARM ON. CALL LIGHT WITHIN REACH. REPORT GIVEN TO ONCOMING RN.
--- NOTE | 2020-05-06 10:21 | NUR ---
PT IS STARTING TO YELL AND CALL OUT VERY LOUDLY, USING INAPPROPRIATE LANGUAGE. WILL MONITOR
--- NOTE | 2020-05-06 18:48 | NUR ---
NO ACUTE CHANGES NOTED THIS SHIFT, SEVERAL EPISODES OF CUSSING AND YELLING AT STAFF, THROWING THINGS ON THE FLOOR, WILL CONTINUE TO MONITOR AND REPORT TO ONCOMING RN
--- NOTE | 2020-05-06 22:14 | NUR ---
PATIENT SITTING UP ON THE SIDE OF HER BED AND APPEARS AGGITATED. WHEN THIS RN WAS TRYING TO ADMINISTER MEDICATIONS TO THE PATIENT SHE REFUSED THE MEDICATIONS STATING THEY WERE NOT THE RIGHT ONES FOR HER, YELLING ABOUT RANDOM THINGS IN THIS RNS FACE. WHEN THE PATIENT MENTIONED THAT SHE HAD NOT HAD DINNER THIS RN OFFERED HER OPTIONS FOR FOOD WHICH SHE COULD EAT, THIS SEEMED TO CALM HER DOWN A LITTLE. WILL TRY AGAIN TO ADMINISTER THE MEDICATIONS.
--- NOTE | 2020-05-06 23:22 | NUR ---
PATIENT REFUSED 2100 MEDICATION FROM A SECOND RN. BECAME INCREASINGLY ANGRY AND AGITATED. 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 PATIENT WAS MEDICATED WITH IM HALDOL, GIVEN VON CARE, BEDDING CHANGED, AND PATIENT ASSISTED BACK TO BED WHILE CRYING HYSTERICALLY. PATIENT IS LYING QUIETLY IN BED NOW.
--- NOTE | 2020-05-07 06:35 | NUR ---
SHIFT SUMMARY PATIENT WAS IRRITABLE AND EMOTIONALLY LABILE THE FIRST HALF OF THE SHIFT. SHE REQUIRED AN IM INJECTION OF HALDOL TO CURB HER BEHAVIOR AND AGITATION. AFTERWORDS, SHE SLEPT WELL AND ONLY WOKE UP TO USE THE COMMODE. BED IN LOWEST POSITION WITH WHEELS LOCKED AND ALARM ON. CALL LIGHT WITHIN REACH. REPORT GIVEN TO ONCOMING RN.
--- NOTE | 2020-05-07 21:43 | NUR ---
PATIENT GIVEN A SHOWER AND ASSISTED BACK TO BED. WARM BLANKET GIVEN TO PATIENT. PATIENT PLEASANT AND TIRED.
--- NOTE | 2020-05-08 00:12 | NUR ---
PATIENT SLEEPING COMFORTABLY IN HER BED
--- NOTE | 2020-05-08 01:20 | NUR ---
ASSISTED PATIENT TO BEDSIDE COMMODE. VON CARE COMPLETED. PATIENT REPOSITIONED IN BED.
--- NOTE | 2020-05-08 06:29 | NUR ---
SHIFT SUMMARY PATIENT PLEASANT AND COOPERATIVE OVERNIGHT. SLEPT WELL. BED IN LOWEST POSITION WITH WHEELS LOCKED AND ALARM ON. CALL LIGHT WITHIN REACH. REPORT GIVEN TO ONCOMING RN.
--- NOTE | 2020-05-08 07:43 | NUR ---
Assumed Care Patient sitting in recliner. Attempting to answer orientation questions. Thinks she is at [facility] and that the year is 1976. Knows herself and her birthday. Unknown situation. Pleasant this morning and cooperative with morning medications. Having coffee, c/o mild achy pain to the right side, but can not point to or describe where the achiness is coming from.
[2020-05-08] MEDS ORDERED: MORP20L SL (10:56)
[2020-05-08] MEDS ORDERED: Transderm-Scop1 EACH TOP (10:57)
[2020-05-08] MEDS ORDERED: Seroquel Xr50 MG PO (10:57)
[2020-05-08] MEDS ORDERED: ATROPINE SULFATE5 ML SL (10:57)
--- NOTE | 2020-05-08 11:31 | NUR ---
Discharge Summary A/O to self and family. Patient discharging to [facility] in [place]. Family to transport. Medicated for pain and anxiety for the trip per request from family and recommendation from Palliative Care RN Dia. Reviewed discharge medications and paperwork with daughter. Escorted by RECORDS TECHNICIAN via w/c. No questions at this time. Patient discharging on hospice.
--- NOTE | 2020-05-08 11:42 | NUR ---
review of prn meds with nursing for pt comfort during transpost.
== END 2020-05-08 11:31 | disposition home or self-care (01) ==
LOC: ER 15:40 → MEDS 15:41 → ENPENDDIS 05-08 09:54 → MEDS 05-08 11:31
PROVIDERS: Emergency Medicine; Family Medicine; Nurse Practitioner Acute Care; ADMIT Internal Medicine
DX: G92 Toxic encephalopathy (principal); C71.9 Malignant neoplasm of brain, unspecified; I10 Essential (primary) hypertension; F23 Brief psychotic disorder; F41.8 Other specified anxiety disorders; E87.6 Hypokalemia; G40.909 Epilepsy, unspecified, not intractable, without status epilepticus; F17.210 Nicotine dependence, cigarettes, uncomplicated; T74.91XA Unspecified adult maltreatment, confirmed, initial encounter; Y07.01 Husband, perpetrator of maltreatment and neglect; B58.9 Toxoplasmosis, unspecified; E66.9 Obesity, unspecified; R60.0 Localized edema; Z79.899 Other long term (current) drug therapy
CPT/HCPCS: 36415; 70450; 70553; 80048; 80053; 81001; 83880; 85025; 87086; 93005; 93010; 96361; 96365; 96366; 96368; 96372; 96375; 97129; 97130; 97166; 99285-25; A9270; A9270-GY; A9579; G0378; J1100; J1630; J1953; J3010; J3480; J7030; J7120; P9612